=== PATIENT | male | born 1960 | race Caucasian/White ===

== ENCOUNTER 2017-03-11 17:39 | Inpatient (IN) | payer OTHER ==
[~2017-03-11] VITALS: Ht 167.6 cm; Wt 68.0 kg
[~2017-03-11 17:39] MED LIST: CHILDREN'S160 MG/11 PO; CIPRO500 MG PO; FLAGYL500 MG PO; FLEXERIL10 MG PO; LISINOPRIL10 MG PO; LORTAB 5-325 M1 EACH PO; MOTRIN600 MG PO; NAPROSYN500 MG PO; NEURONTIN300 MG PO; NORCO 5/3251 TABLET PO; PREDNISONE5 M1 PO; TRAMADOL HCL50 MG PO; ULTRAM50 MG PO; ZITHROMAX250 MG PO; ZOFRAN ODT4 MG PO
[2017-03-11 19:03] LABS: EOSINOPHIL (%) 0.7 % (0-5); EOSINOPHIL COUNT 0.1 K/uL (0-0.3); HEMATOCRIT 36.3 % (38.0-50.0); IMMATURE GRANULOCYTE (%) 0.5 % (0.0-0.7); IMMATURE GRANULOCYTE COUNT 0.1 K/uL; INSTRUMENT ABS NEUTROPHIL CT 9.8 K/uL; LYMPHOCYTE COUNT 1.6 K/uL (1.0-2.8); MCH 30.2 PG (29.0-34.0); MCHC 33.1 G/DL (30.0-36.0); MCV 91.2 FL (86-99); MEAN PLAT.VOLUME 8.5 uM^3 (9.0-12.4); MONOCYTE (%) 9.2 % (3-12); MONOCYTE COUNT 1.2 K/uL (0-0.8); NEUTROPHIL (%) 76.8 % (45-76); NEUTROPHIL COUNT 9.8 K/uL (1.8-6.4); PLATELET COUNT 370 K/uL (156-360); RBC DIS.WIDTH-CV 13.7 % (11.8-14.6); RBC DIS.WIDTH-SD 45.8 % (39-53); RED BLOOD COUNT 3.98 M/uL (4.00-5.50); WHITE BLOOD COUNT 12.7 K/uL (4.1-10.2)
[2017-03-11 19:11] LABS: CHLORIDE 106 mEq/L (99-109); POTASSIUM 3.6 mEq/L (3.7-5.4); SODIUM 137 mEq/L (136-147)
[2017-03-11 19:13] LABS: GLUCOSE 93 mg/dL (70-99)
[2017-03-11 19:14] LABS: ANION GAP 10 MEQ/L (2-14); PROTHROMBIN TIME 10.4 (9.2-11.2)
[2017-03-11 19:15] LABS: TOTAL BILIRUBIN 0.5 mg/dL (0.0-1.0)
[2017-03-11 19:16] LABS: ALKALINE PHOSPHATASE 77 IU/L (3-129)
[2017-03-11 19:17] LABS: GFR ESTIMATE (CALCULATED) > 59 mL/min/
[2017-03-11 19:18] LABS: UREA NITROGEN (BUN) 4 mg/dL (9-23)
[2017-03-11 19:20] LABS: CREATINE KINASE 33 IU/L (1-294); TOTAL CK 33 IU/L (1-294)
[2017-03-11 19:26] LABS: TROP-I INTERPRETATION NEGATIVE; TROPONIN-I < 0.01 ng/mL (0.0-0.30)
[2017-03-11 19:27] LABS: CK-MB 0.7 ng/mL (0.0-4.9)
[2017-03-11 19:27] LABS: ADD MIUA? NO; BILIRUBIN NEGATIVE; BLOOD NEGATIVE; COLOR STRAW ((YELLOW)); GLUCOSE (STRIP) NEGATIVE; KETONES NEGATIVE; LEUKOCYTES NEGATIVE; NITRITE NEGATIVE; PROTEIN (STRIP) NEGATIVE; SPECIFIC GRAVITY 1.003 (1.000-1.030); UCUL ADDED? NO; UROBILINOGEN 0.2 MG/DL (0.2-1.0)
[2017-03-11] MEDS ORDERED: DAILY VALUE1 EACH PO (21:03)
[2017-03-11] MEDS ORDERED: TYLENOL EXTRA500 MG PO (21:03)
[2017-03-11 22:19] VITALS: BP 137/97
[2017-03-12] VITALS (7 sets, daily range): BP systolic 127–167; BP diastolic 77–100
[2017-03-12 02:02] LABS: TROP-I INTERPRETATION NEGATIVE; TROPONIN-I < 0.01 ng/mL (0.0-0.30)
[2017-03-12 09:23] LABS: HEMATOCRIT 35.6 % (38.0-50.0); MCH 29.7 PG (29.0-34.0); MCHC 32.3 G/DL (30.0-36.0); MEAN PLAT.VOLUME 8.5 uM^3 (9.0-12.4); PLATELET COUNT 311 K/uL (156-360); RBC DIS.WIDTH-CV 13.9 % (11.8-14.6); RBC DIS.WIDTH-SD 46.6 % (39-53); RED BLOOD COUNT 3.87 M/uL (4.00-5.50); WHITE BLOOD COUNT 7.4 K/uL (4.1-10.2)
[2017-03-12 09:24] LABS: ALKALINE PHOSPHATASE 72 IU/L (3-129); ANION GAP 4 MEQ/L (2-14); CHLORIDE 108 MEQ/L (99-109); GFR ESTIMATE (CALCULATED) > 59 mL/min/; GLUCOSE 89 mg/dL (70-99); SAMPLE HEMOLYSIS CHECK 0; SAMPLE ICTERIC CHECK 0; SAMPLE LIPEMIA CHECK 0; SODIUM 138 MEQ/L (136-147); TOTAL BILIRUBIN 0.9 MG/DL (0.0-1.0); UREA NITROGEN (BUN) 5 mg/dL (9-23)
[2017-03-12 09:25] LABS: POTASSIUM 4.4 MEQ/L (3.7-5.4)
[2017-03-12 09:37] LABS: TROP-I INTERPRETATION NEGATIVE; TROPONIN-I < 0.01 ng/mL (0.0-0.30)
[2017-03-13 02:37] VITALS: BP 134/82
[2017-03-13 07:16] VITALS: BP 136/91
[2017-03-13 07:19] LABS: HEMATOCRIT 32.2 % (38.0-50.0); MCH 30.9 PG (29.0-34.0); MCHC 33.5 G/DL (30.0-36.0); MCV 92.3 FL (86-99); MEAN PLAT.VOLUME 8.8 uM^3 (9.0-12.4); PLATELET COUNT 286 K/uL (156-360); RBC DIS.WIDTH-CV 13.7 % (11.8-14.6); RBC DIS.WIDTH-SD 46.2 % (39-53); RED BLOOD COUNT 3.49 M/uL (4.00-5.50); WHITE BLOOD COUNT 8.8 K/uL (4.1-10.2)
[2017-03-13 11:22] VITALS: BP 140/84
[2017-03-13 15:05] VITALS: BP 165/98
[2017-03-13 19:48] VITALS: BP 125/70
[2017-03-13 23:42] VITALS: BP 120/64
[2017-03-14] MEDS ORDERED: LIBRIUM10 MG PO (11:28)
[2017-03-14] MEDS ORDERED: PANTOPRAZOLE SO40 MG PO (11:28)
[2017-03-14] MEDS ORDERED: FOLIC ACID1 MG PO (11:28)
[2017-03-14] MEDS ORDERED: Thiamine,Vitamin B1 PO (11:28)
[2017-03-14] MEDS ORDERED: ASPIR-LOW81 MG PO (11:28)
[2017-03-14] MEDS ORDERED: NICOTINE PATCH1 EAC2 TD (11:28)
[2017-03-14] MEDS ORDERED: OXAYDO5 MG PO (11:41)
[2017-03-14 15:34] VITALS: BP 160/82
[2017-03-14 23:30] VITALS: BP 110/73
[2017-03-15 06:50] VITALS: BP 123/76
[2017-03-15 14:59] VITALS: BP 124/60
== END 2017-03-15 19:07 | disposition home or self-care (01) | DRG 375 ==
LOC: EME 17:39 → EDOF 21:06 → 5WEST 21:06 → 5EAST 03-12 13:34
PROVIDERS: Emergency Medicine; Internal Medicine; Internal Medicine Gastroenterology
DX: C16.0 Malignant neoplasm of cardia (principal); F10.239 Alcohol dependence with withdrawal, unspecified; F17.210 Nicotine dependence, cigarettes, uncomplicated; R00.0 Tachycardia, unspecified; J44.9 Chronic obstructive pulmonary disease, unspecified; I10 Essential (primary) hypertension; M10.9 Gout, unspecified; K21.9 Gastro-esophageal reflux disease without esophagitis; F31.9 Bipolar disorder, unspecified; E87.6 Hypokalemia; F41.9 Anxiety disorder, unspecified; K22.70 Barrett's esophagus without dysplasia; K44.9 Diaphragmatic hernia without obstruction or gangrene; I73.9 Peripheral vascular disease, unspecified; Z88.0 Allergy status to penicillin
CPT/HCPCS: 71020; 71275; 74176; 80053; 81003; 82550; 82553; 83605; 84443; 84484; 85025; 85027; 85610; 86900; 86901; 88305; 88342 TC; 93005; 99281; 99285; C9113; G0103; G0378; J1644; J2060; J2270; J2405; J2765; J3411; J3475; J3480; J7030